=== PATIENT | female | born 1975 ===

== ENCOUNTER → 2022-10-17 | Outpatient (CLI) | payer BC ==
[~2022-10-17] MED LIST: CRUTCH4 USE; HYDACE5325 PO
[2022-10-17 13:44] LABS: BASOPHILS ABSOLUTE AUTO 0.03 K/mm3 (0.00-0.23); BASOPHILS PERCENT AUTO 0 % (0-2); EOSINOPHILS PERCENT AUTO 4 % (0-6); Hematocrit 44.5 % (33.0-51.0); Hemoglobin 14.1 g/dL (11.5-16.0); IMMATURE GRAN ABSOLUTE AUTO 0.01 K/mm3 (0.00-0.10); IMMATURE GRAN PERCENT AUTO 0 % (0-1); LYMPHOCYTES ABSOLUTE AUTO 2.28 K/mm3 (0.84-5.20); LYMPHOCYTES PERCENT AUTO 33 % (21-46); MONOCYTES ABSOLUTE AUTO 0.35 K/mm3 (0.16-1.47); MONOCYTES PERCENT AUTO 5 % (4-13); Mean Corpuscular HGB 27.3 pg (26.0-34.0); Mean Corpuscular HGB Conc 31.7 g/dL (31.5-36.5); Mean Corpuscular Volume 86 fL (80-100); NEUTROPHILS ABSOLUTE AUTO 3.92 K/mm3 (1.96-9.15); NEUTROPHILS PERCENT AUTO 57 % (41-73); Platelet Count 269 K/mm3 (150-400); RDW Coefficient Variation 13.9 % (11.7-14.2); RDW Standard Deviation 44.2 fL (35.1-46.3); Red Blood Cell Count 5.17 M/mm3 (3.80-5.20); White Blood Cell Count 6.89 K/mm3 (4.00-11.30)
[2022-10-17 14:37] LABS: C-REACTIVE PROTEIN, EXT RANGE 0.333 mg/dL (0.000-0.300)
[2022-10-17 14:51] LABS: Albumin, Blood 3.6 g/dL (3.4-5.0); Albumin/Globulin Ratio 1.1 (0.8-1.8); Bilirubin, Total 1.2 mg/dL (0.1-1.0); Bun/Creatinine Ratio 12.2 (12.0-20.0); Calcium, Blood 9.1 mg/dL (8.5-10.1); Creatinine, Blood 0.9 mg/dL (0.40-1.00); Globulin, Blood 3.4 g/dL (2.2-4.0); Potassium, Blood 4.1 mmol/L (3.5-5.5); Thyroid Stimulating Hormone 0.748 uIU/mL (0.360-4.800)
== END | disposition home or self-care (01) ==
LOC: LAB 09:45 → LAB SHORT 09:45
PROVIDERS: Physician Assistant
DX: Z00.00 Encounter for general adult medical examination without abnormal findings (principal); M79.7 Fibromyalgia
CPT/HCPCS: 80053; 82306; 82550; 84443; 85025; 85651; 86140

== ENCOUNTER 2023-09-08 08:07 | Day surgery (SDC) | payer BC ==
[~2023-09-08] VITALS: Ht 170.2 cm; Wt 127.7 kg
[~2023-09-08 08:07] MED LIST changes: +DULO30 PO; +GABA300 PO; +Lactated Ringer's 1,000 ML IV SCH; +ROPI.25 PO; +VITAMIN D350 MC3 PO
[2023-09-08 09:59] VITALS: BP 133/87
--- NOTE | 2023-09-08 10:01 | NUR ---
History, Chart, Medications and Allergies reviewed before start of procedure. Patient States Post-Procedure ride home has been arranged with , Theo.
[2023-09-08] MEDS ORDERED: propofoL 50 ML IV ONE (10:03)
[2023-09-08] MEDS ORDERED: Benzocaine Oral Spray 0.5ML UD ONE (10:09)
--- NOTE | 2023-09-08 10:17 | NUR ---
09/08/23 1017 Boo Akers MONITOR INTACT WITH CONTINUOUS PULSE OXIMETRY, CONTINUOUS END TITAL CO2, AND INTERMITTENT BLOOD PRESSURE.AND EKG
[2023-09-08] MEDS ORDERED: propofoL 40 ML IV ONE ×2 (10:26→10:34)
[2023-09-08 10:53] VITALS: BP 105/51
[2023-09-08 11:02] VITALS: BP 100/54
--- NOTE | 2023-09-08 11:08 | NUR ---
Discharge instructions reviewed with patient. Patient verbalizes understanding. Copy given to patient to take home. PT DENIES NEED FOR ANYTHING TO DRINK. Discharged via wheelchair to private car for ride home.
== END 2023-09-08 23:55 | disposition home or self-care (01) ==
LOC: ORSCMMR 08:07 → ORD 09:30 → ORSCMMR 23:55
PROVIDERS: Internal Medicine Gastroenterology
PROC: 0DBC8ZX Excision of Ileocecal Valve, Via Natural or Artificial Opening Endoscopic, Diagnostic (ICD-10-PCS; principal; 2023-09-08 09:30)
PROC: 0DB48ZX Excision of Esophagogastric Junction, Via Natural or Artificial Opening Endoscopic, Diagnostic (ICD-10-PCS; principal; 2023-09-08 09:30)
PROC: 0DB98ZX Excision of Duodenum, Via Natural or Artificial Opening Endoscopic, Diagnostic (ICD-10-PCS; principal; 2023-09-08 09:30)
PROC: 0DB68ZX Excision of Stomach, Via Natural or Artificial Opening Endoscopic, Diagnostic (ICD-10-PCS; principal; 2023-09-08 09:30)
DX: Z12.11 Encounter for screening for malignant neoplasm of colon (principal); D12.0 Benign neoplasm of cecum; Z01.818 Encounter for other preprocedural examination; K21.00 Gastro-esophageal reflux disease with esophagitis, without bleeding; E66.01 Morbid (severe) obesity due to excess calories; Z68.42 Body mass index [BMI] 45.0-49.9, adult; G25.81 Restless legs syndrome; F32.A Depression, unspecified; Z79.899 Other long term (current) drug therapy
CPT/HCPCS: 88305; 88342; A9270; J2704; J7120